=== PATIENT | female | born 1975 | race Caucasian/White ===

== ENCOUNTER 2017-05-01 13:14 | Outpatient (CLI) | payer OTHER ==
--- NOTE | 2017-05-01 15:45 | ULT ---
EXAM: ABDOMINAL ULTRASOUND 05/01/17 HISTORY: Three days of left flank pain. COMPARISON: None. TECHNIQUE: Utilizing a multihertz transducer, sonographic imaging of the abdomen is performed in longitudinal an d transverse plane. FINDINGS: There is heterogeneity of the liver which may be due to hepatic steatosis or hepatocellular disease. Right hepatic lobe measures 17.8 cm. Evaluation for hepatic masses and intrahepatic dilatation is pearson ited. The visualized aorta and inferior vena cava have a normal caliber. The head of the pancreas has a nor mal echotexture. The remainder of the pancreas is obscured. Main portal vein is patent. Appropriate directional flow. Common bile duct diameter is 0.4 cm. No sonographic evidence of cholelithiasis, gallbladder wall thic kening, or pericholecystic fluid. Negative Rudd's sign. Kidneys have a normal cortical echotexture. Bilaterally, no hydronephrosis. Right kidney measures 4.6 x 5.1 x 9.7 cm. Left kidney measures 5.5 x 11.5 x 5.3 cm. The spleen has a normal echotexture measuring 9 cm in maximum dimension. IMPRESSION: Heterogeneity of the liver which may be due to hepatic steatosis or hepatocellular disease. If there is concern for liver masses, consider liver mass protocol CT. POS: [facility]
--- NOTE | 2017-05-01 15:46 | ULT ---
PELVIC ULTRAASOUND: Date: 05/01/17 HISTORY: Left flank pain x3 days. Last menstrual period was 1.5 years ago. COMPARISON: None. TECHNIQUE: Transabdominal and endovaginal imaging of the pelvis was performed. Ovaries were interrogated with Gr ay scale, color flow, Doppler imaging, and spectral waveform analysis. FINDINGS: Uterus is identified, with solid myometrial masses. There is a small anechoic focus in the anterior l ower uterine segment which may represent a small cyst measuring 0.5 x 0.4 x 0.6 cm. Overall, the uter us measures 3.4 x 4.9 x 7.0 cm. Endometrial diameter is 0.25 cm. Left ovary has a normal echotexture, measuring 1.4 x 0.9 x 1.7 cm. Right ovary has a normal echotextu re measuring 2.3 x 1.8 x 1.7 cm. No free fluid. Ovarian Doppler: Vascular flow to right and left ovary. IMPRESSION: Unremarkable pelvic ultrasound. POS: [facility]
== END 2017-05-01 13:15 | disposition home or self-care (01) ==
LOC: ULT 13:14
PROVIDERS: ATTEND Family Medicine
DX: R10.9 Unspecified abdominal pain (principal)
CPT/HCPCS: 76700; 76856

== ENCOUNTER 2022-11-14 09:07 | Outpatient (CLI) | payer BC ==
[2022-11-14] MEDS ORDERED: Iopamidol 370 76% 100 ML VIAL ONE (12:47)
== END 2022-11-14 09:08 | disposition home or self-care (01) ==
LOC: CT 09:07
PROVIDERS: ATTEND Internal Medicine
DX: C15.4 Malignant neoplasm of middle third of esophagus (principal); K76.9 Liver disease, unspecified
CPT/HCPCS: 71260; 74177; Q9967